=== PATIENT | female | born 1980 | race Caucasian/White ===

== ENCOUNTER 2020-12-30 01:27 | Emergency (ER) | payer MEDICAID ==
[~2020-12-30] VITALS: Ht 162.6 cm; Wt 122.5 kg
--- NOTE | 2020-12-30 01:50 | NUR ---
ABSCESS ON THE LEFT PUBIC AREA /LABIA, SORE ON THE RIGHT INNER THIGH , THAT IS ALREADY HEALING
[2020-12-30] MEDS ORDERED: HYDROMORPHONE 1 MG/1 ML DISP.SYRIN IM ONE (02:00)
[2020-12-30] MEDS ORDERED: LIDOCAINE HCL 2% 20 ML VIAL TP ONE (02:00)
[2020-12-30] MEDS ORDERED: ONDANSETRON 4 MG/2 ML VIAL IM ONE (02:00)
[2020-12-30] MEDS ORDERED: HYDROMORPHONE 2 MG/1 ML DISP.SYRIN ONE (02:08)
[2020-12-30] MEDS ORDERED: ONDANSETRON 4 MG/2 ML VIAL ONE (02:08)
[2020-12-30] MEDS ORDERED: LIDOCAINE HCL 2% 20 ML VIAL ONE (02:19)
--- NOTE | 2020-12-30 03:15 | NUR ---
left labia abscess was drained , and cleansed wipe dry , 4x 4 dressing applied ,
--- NOTE | 2020-12-30 03:22 | NUR ---
prescription given and explained , verbalized understanding
[2020-12-31] MEDS ORDERED: SULF1TAB48 PO (23:20)
[2020-12-31] MEDS ORDERED: HYDR-3980 PO (23:20)
== END 2020-12-30 03:24 | disposition home or self-care (01) ==
LOC: ER 01:29
DX: N76.4 Abscess of vulva (principal)
CPT/HCPCS: 56405; 96372 ×2; 99284; J1170; J2405; J3490; A4663

== ENCOUNTER 2020-12-31 22:17 | Emergency (ER) | payer MEDICAID ==
[~2020-12-31] VITALS: Ht 162.6 cm; Wt 122.5 kg
[2020-12-31] MEDS ORDERED: HYDROMORPHONE 1 MG/1 ML DISP.SYRIN IM ONE (22:45)
[2020-12-31] MEDS ORDERED: ONDANSETRON 4 MG/2 ML VIAL IM ONE (22:45)
[2020-12-31] MEDS ORDERED: LIDOCAINE 1%-EPI 1:100,000 20 ML VIAL IJ ONE (22:45)
--- NOTE | 2020-12-31 22:45 | NUR ---
Dr. العلي at bedside for MSE, chapperoned by Caron RN Nurse Fur Examiner.
[2020-12-31] MEDS ORDERED: HYDROMORPHONE 2 MG/1 ML DISP.SYRIN ONE (22:49)
[2020-12-31] MEDS ORDERED: ONDANSETRON 4 MG/2 ML VIAL ONE (22:49)
[2020-12-31] MEDS ORDERED: HYDR-3980 PO (23:20)
[2020-12-31] MEDS ORDERED: SULF1TAB48 PO (23:20)
--- NOTE | 2020-12-31 23:27 | NUR ---
Patient discharged to home in stable condition. Written and verbal after care instructions given. Patient verbalizes understanding of instructions. Stressed follow up or return to ER for worsening s/s. Patient out of ER with steady gait, no acute signs of distress, VSS, all belongings taken, instructed not to drive, pt will uber home.
[2020-12-31 23:28] VITALS: BP 158/82
== END 2020-12-31 23:29 | disposition home or self-care (01) ==
LOC: ER 22:18
DX: N76.4 Abscess of vulva (principal); R05 Cough
CPT/HCPCS: 56405; 96372 ×2; 99284; J1170; J2405; J3490; A4663

== ENCOUNTER 2021-01-02 22:48 | Emergency (ER) | payer MEDICAID ==
[~2021-01-02] VITALS: Ht 162.6 cm; Wt 117.9 kg
[~2021-01-02 22:48] MED LIST: HYDR-3980 PO; SULF1TAB48 PO
[2021-01-03] MEDS ORDERED: HYDROMORPHONE 1 MG/1 ML DISP.SYRIN IM ONE (00:15)
[2021-01-03] MEDS ORDERED: ONDANSETRON ODT 4 MG TAB.RAPDIS SL ONE (00:15)
[2021-01-03] MEDS ORDERED: HYDROMORPHONE 2 MG/1 ML DISP.SYRIN ONE (00:24)
[2021-01-03] MEDS ORDERED: ONDANSETRON ODT 4 MG TAB.RAPDIS ONE (00:24)
--- NOTE | 2021-01-03 00:36 | NUR ---
GIVEN DILAUDID 2 MG IM VIA THE LEFT DELTOID FOR 8/10 PAIN TO HER LEFT LABIA .WILL CONTINUE TO MONITR PAIN LEVEL.
[2021-01-03] MEDS ORDERED: SULF1TAB48 PO (00:42)
--- NOTE | 2021-01-03 01:10 | NUR ---
DR: MANDIE AT B/S ASSISTED FOR WOUND PACKING /DRESSING . MD SPOKED WITH PATIENT WITH REGARDS TO ANTIBIOTIC AND TO RECHECK IN 2 DAYS AND TO RETURN FOR NEW/WORSENING SYMPTOMS AND TO SEE ENTRY LEVEL ACCOUNTING CLERK CHARLENE . PATIENT VERBALIZED UNDERSTANDING .
--- NOTE | 2021-01-03 01:28 | NUR ---
Patient discharged to home in stable condition. Written and verbal after care instructions given. Patient verbalizes understanding of instructions. Stressed follow up or return to ER for worsening s/s.WENT HOME WITH ALL BELONGINGS AND V/S WNL ,NO RESPIRATORY DISTRESS,AMBULATORY STEADY OF GAIT WAITING OUTSIDE .
[2021-01-03 01:30] VITALS: BP 155/98
== END 2021-01-03 01:31 | disposition home or self-care (01) ==
LOC: ER 22:49
DX: N76.4 Abscess of vulva (principal); R10.2 Pelvic and perineal pain
CPT/HCPCS: 10060; 96372; 99283; J1170; Q0162

== ENCOUNTER 2021-01-04 22:31 | Emergency (ER) | payer MEDICAID ==
[~2021-01-04] VITALS: Ht 162.6 cm; Wt 120.2 kg
--- NOTE | 2021-01-04 23:01 | NUR ---
Came in ambulatory for wound check. To room 4A; seen and evaluated by Dr. Hendricks.
--- NOTE | 2021-01-04 23:15 | NUR ---
Patient requesting pain medication prior to re packing wound. Dr. Hendricks aware. Medicated with Dilaudid IM.
[2021-01-04] MEDS ORDERED: HYDROMORPHONE 1 MG/1 ML DISP.SYRIN ONE (23:19)
[2021-01-04] MEDS: HYDROMORPHONE 1 MG/1 ML DISP.SYRIN IM ONE (23:19)
[2021-01-04] MEDS: ONDANSETRON ODT 4 MG TAB.RAPDIS SL ONE (23:24)
--- NOTE | 2021-01-04 23:24 | NUR ---
C/o nausea; Dr. Hendricks notified. Medicated with Zofran odt.
[2021-01-04] MEDS ORDERED: ONDANSETRON ODT 4 MG TAB.RAPDIS ONE (23:30)
--- NOTE | 2021-01-04 23:30 | NUR ---
Wound packings done by Dr. Hendricks. Patient tolerated procedure well.
[2021-01-04 23:59] VITALS: BP 150/90
--- NOTE | 2021-01-04 23:59 | NUR ---
Patient discharged to home in stable condition. Written and verbal after care instructions given. Patient verbalizes understanding of instructions. Stressed follow up or return to ER for worsening s/s.
== END 2021-01-04 23:55 | disposition home or self-care (01) ==
LOC: ER 22:32
DX: N76.4 Abscess of vulva (principal); N73.2 Unspecified parametritis and pelvic cellulitis
CPT/HCPCS: 96372; 99283; J1170; A4663; Q0162

== ENCOUNTER 2021-01-07 23:02 | Emergency (ER) | payer MEDICAID ==
[~2021-01-07] VITALS: Ht 162.6 cm; Wt 117.9 kg
--- NOTE | 2021-01-07 23:19 | NUR ---
Patient came in c/o wound on vaginal area, non-draining. No c/o pain but noted with discomfort. Ambulatory, no SOB or labored breathing afebrile.
--- NOTE | 2021-01-07 23:35 | NUR ---
Dr. Moe at bedside MSE in progress.
--- NOTE | 2021-01-08 00:34 | NUR ---
Patient discharged to home in stable condition. Written and verbal after care instructions given. Patient verbalizes understanding of instructions. Stressed follow up or return to ER for worsening s/s. Steady gait, no c/o pain or discomfort.
[2021-01-08 00:35] VITALS: BP 159/102
== END 2021-01-08 00:36 | disposition home or self-care (01) ==
LOC: ER 23:03
DX: Z48.817 Encounter for surgical aftercare following surgery on the skin and subcutaneous tissue (principal); N75.1 Abscess of Bartholin's gland
CPT/HCPCS: A4663